=== PATIENT | female | born 1990 | race Caucasian/White ===

== ENCOUNTER 2019-04-08 19:51 | Emergency (ER) | payer SELFPAY ==
[~2019-04-08] VITALS: Ht 173 cm; Wt 64.5 kg
--- NOTE | 2019-04-08 20:56 | ED EENT ---
History of Present Illness General Chief Complaint: Dental Problems/Pain Stated Complaint: GUMS BLEEDING Nursing Triage Note: PT HAD A TOOTH TAKEN OUT TODAY AT [facility], CC OF DENTAL BLEEDING THAT WON'T STOP. UPPER LT SIDE. History of Present Illness Date Seen by Provider: Apr 08, 2019 Time Seen by Provider: 20:30 Initial Comments 28-year-old female presents for bleeding from her left upper gum after having a tooth extraction earlier today. Approximately one hour prior to arrival the patient had removed the packing that was placed and noted persistent bleeding. She applied a Tea bag and has been keeping that in place. She does not take aspirin or any anticoagulants, she's only been taking Tylenol for pain. No history of bleeding disorders. Timing/Duration: abrupt Location: mouth Prearrival Treatment: over the counter meds Associated Symptoms: denies symptoms Allergies and Home Medications Patient Home Medication List Home Medication List Reviewed: Yes Review of Systems Review of Systems Constitutional: no symptoms reported, see HPI Mouth: see HPI, bloody discharge All Other Systems Reviewed Negative Unless Noted: Yes Past Wbmzqsh-Gohefj-Fttzze Hx Past Med/Social Hx: Reviewed Nursing Past Med/Soc Hx Patient Social History Alcohol Use: Rarely Uses Alcohol Beverage of Choice: Wine Recreational Drug Use: No Smoking Status: Former Smoker Type Used: Cigarettes Former Smoker, Quit: Nov 19, 2018 Recent Foreign Travel: No Contact w/Someone Who Travel: No Recent Infectious Disease Expo: No Recent Hopitalizations: No Physical Abuse: No Sexual Abuse: No Mistreated: No Fear: No Seasonal Allergies Seasonal Allergies: Yes Past Medical History Surgeries: Yes (DENTAL, NOSE) Gallbladder Respiratory: No Cardiac: No Neurological: No : No Last Menstrual Period: Apr 08, 2019 Genitourinary: No Gastrointestinal: No Musculoskeletal: No Endocrine: No HEENT: No Cancer: No Psychosocial: Yes Anxiety, Depression Integumentary: No Physical Exam Vital Signs Vital Signs - First Documented 04/08/19 20:13 Temp 36.9 Pulse 71 Resp 18 B/P (MAP) 130/90 (103) Pulse Ox 100 O2 Delivery Room Air Height, Weight, BMI Height: '" Weight: lbs. oz. kg; 21.00 BMI Method: General Appearance: WD/WN, no apparent distress Nose: normal inspection; No active bleeding, No discharge Mouth/Throat: pharynx normal; No mandibular swelling; other (left upper #12 tooth extracted, tea bag removed, no active bleeding from wound site. Re- applied 4x4 and applied ice back to check. ) Cardiovascular: normal peripheral pulses, regular rate, rhythm Respiratory: chest non-tender, lungs clear, normal breath sounds Neurologic/Psychiatric: no motor/sensory deficits, alert, normal mood/affect, oriented x 3 Progress/Results/Core Measures Results/Orders Vital Signs/I&O 04/08/19 04/08/19 20:13 21:14 Temp 36.9 36.9 Pulse 71 70 Resp 18 18 B/P (MAP) 130/90 (103) 128/89 (103) Pulse Ox 100 100 O2 Delivery Room Air Blood Pressure Mean: 103 Progress Progress Note : Time: 20:30 Progress Note Patient seen and evaluated, will keep packing in place for approximately 15 minutes and reevaluate. 2049 Trace bleeding to gauze packing. No active bleeding to gingiva. New gauze placed, charge instructions and return precautions reviewed with the patient. All questions answered Departure Impression Primary Impression: S/P tooth extraction Disposition: HOME, SELF-CARE Condition: Improved Departure-Patient Inst. Decision time for Depature: 21:00 Referrals: NO,LOCAL PHYSICIAN (PCP/Family) Primary Care Physician Patient Instructions: Tooth Extraction (DC) Add. Discharge Instructions: Only take Tylenol 650 mg every 6-8 hours as needed for pain, avoid aspirin or ibuprofen products. Continue to use gauze or tea bags for bleeding. Remove for sleeping. Liquid or soft food to eat. Follow up at [facility] if symptoms are not improving or worsen tomorrow. Apply ice pack to left cheek for 20 minutes every 2 hours while awake. Return to the emergency department for new, urgent health care needs. All discharge instructions reviewed with patient and/or family. Voiced understa nding. DOROTHEA FARRAR Apr 08, 2019 20:56
[2019-04-08 21:14] VITALS: BP 128/89
== END 2019-04-08 21:14 | disposition home or self-care (01) ==
LOC: ER 19:53
DX: K08.409 Partial loss of teeth, unspecified cause, unspecified class (principal); F41.9 Anxiety disorder, unspecified; F32.9 Major depressive disorder, single episode, unspecified; Z87.891 Personal history of nicotine dependence
CPT/HCPCS: 99282

== ENCOUNTER → 2019-10-09 | Outpatient (CLI) | payer OTHER ==
[~2019-10-09] MED LIST: BUSP5TAB59 PO; DEXL60CA PO; ONDA4TAB11 PO
[2019-10-09 08:48] LABS: BASOPHILS % (AUTO) 1 % (0-10); EOSINOPHILS # (AUTO) 0.1 10^3/uL (0.0-0.3); EOSINOPHILS % (AUTO) 3 % (0-10); HEMATOCRIT 41 % (35-52); HEMOGLOBIN 13.2 G/DL (11.5-16.0); LYMPHOCYTES # (AUTO) 1.1 X 10^3 (1.0-4.0); LYMPHOCYTES % (AUTO) 28 % (12-44); MEAN CORPUSCULAR HEMOGLOBIN 30 PG (25-34); MEAN CORPUSCULAR HGB CONC 32 G/DL (32-36); MEAN CORPUSCULAR VOLUME 92 FL (80-99); MEAN PLATELET VOLUME 12.2 FL (7.4-10.4); MONOCYTES # (AUTO) 0.4 X 10^3 (0.0-1.0); MONOCYTES % (AUTO) 11 % (0-12); NEUTROPHILS # (AUTO) 2.2 X 10^3 (1.8-7.8); NEUTROPHILS % (AUTO) 58 % (42-75); PLATELET COUNT 179 10^3/uL (130-400); RED CELL DISTRIBUTION WIDTH 14.3 % (10.0-14.5); WHITE BLOOD COUNT 3.9 10^3/uL (4.3-11.0)
[2019-10-09 09:01] LABS: ALANINE AMINOTRANSFERASE 17 U/L (0-55); ALBUMIN 4.6 GM/DL (3.2-4.5); ALKALINE PHOSPHATASE 88 U/L (40-136); BILIRUBIN,TOTAL 0.6 MG/DL (0.1-1.0); BUN/CREATININE RATIO 10; CALCIUM 9.2 MG/DL (8.5-10.1); CARBON DIOXIDE 24 MMOL/L (21-32); CHLORIDE 106 MMOL/L (98-107); CHOLESTEROL 101 MG/DL (< 200); CREATININE SERUM 0.94 MG/DL (0.60-1.30); GFR ESTIMATED > 60; GLUCOSE 97 MG/DL (70-105); HDL CHOLESTEROL 41 MG/DL (40-60); SODIUM 139 MMOL/L (135-145); TOTAL PROTEIN 7.8 GM/DL (6.4-8.2); TRIGLYCERIDES 40 MG/DL (<150); VLDL CHOLESTEROL 8 MG/DL (5-40)
== END ==
LOC: LAB 08:16
PROVIDERS: ATTEND Nurse Practitioner Family
DX: R53.83 Other fatigue (principal); R10.9 Unspecified abdominal pain; R55 Syncope and collapse
CPT/HCPCS: 36415; 80053; 80061; 84439; 84443; 85025

== ENCOUNTER 2019-10-12 10:40 | Emergency (ER) | payer OTHER ==
[~2019-10-12] VITALS: Ht 175 cm; Wt 65.7 kg
[2019-10-12 10:50] VITALS: BP 123/74
[2019-10-12] MEDS ORDERED: LACTATED RINGERS 1,000 ML IV ONE ×2 (10:55→10:58)
[2019-10-12] MEDS ORDERED: ONDANSETRON 4 MG/2 ML (SDV) Z0FRAN ONE (10:55)
[2019-10-12] MEDS ORDERED: ONDANSETRON 4 MG/2 ML (SDV) Z0FRAN IVP ONE (11:00)
[2019-10-12] MEDS ORDERED: FAMOTIDINE 20MG/2ML IV (PEPCID) IVP ONE (11:00)
[2019-10-12 11:03] LABS: BASOPHILS % (AUTO) 1 % (0-10); EOSINOPHILS # (AUTO) 0.2 10^3/uL (0.0-0.3); EOSINOPHILS % (AUTO) 4 % (0-10); HEMATOCRIT 42 % (35-52); HEMOGLOBIN 13.3 G/DL (11.5-16.0); LYMPHOCYTES # (AUTO) 1.1 X 10^3 (1.0-4.0); LYMPHOCYTES % (AUTO) 18 % (12-44); MEAN CORPUSCULAR HEMOGLOBIN 29 PG (25-34); MEAN CORPUSCULAR HGB CONC 32 G/DL (32-36); MEAN CORPUSCULAR VOLUME 91 FL (80-99); MEAN PLATELET VOLUME 12.4 FL (7.4-10.4); MONOCYTES # (AUTO) 0.5 X 10^3 (0.0-1.0); MONOCYTES % (AUTO) 8 % (0-12); NEUTROPHILS # (AUTO) 4.1 X 10^3 (1.8-7.8); NEUTROPHILS % (AUTO) 69 % (42-75); PLATELET COUNT 187 10^3/uL (130-400); RED CELL DISTRIBUTION WIDTH 14.5 % (10.0-14.5)
[2019-10-12 11:04] LABS: BILIRUBIN,URINE NEGATIVE (NEGATIVE); CLARITY,URINE CLEAR; COLOR,URINE YELLOW; GLUCOSE, URINE (UA) NEGATIVE (NEGATIVE); KETONES,URINE NEGATIVE (NEGATIVE); LEUKOCYTE ESTERASE ,URINE NEGATIVE (NEGATIVE); NITRITE,URINE NEGATIVE (NEGATIVE); PH,URINE 7.5 (5-9); PROTEIN,URINE NEGATIVE (NEGATIVE)
[2019-10-12 11:14] LABS: BACTERIA,URINE FEW /HPF
[2019-10-12 11:16] LABS: ALBUMIN 4.6 GM/DL (3.2-4.5); CHLORIDE 107 MMOL/L (98-107); SODIUM 140 MMOL/L (135-145)
[2019-10-12 11:17] LABS: CALCIUM 9.5 MG/DL (8.5-10.1)
[2019-10-12 11:18] LABS: GLUCOSE 99 MG/DL (70-105); TOTAL PROTEIN 8.3 GM/DL (6.4-8.2)
[2019-10-12 11:19] LABS: CARBON DIOXIDE 22 MMOL/L (21-32)
--- NOTE | 2019-10-12 11:19 | ED GI ---
General Chief Complaint: Abdominal/GI Problems Stated Complaint: COUGH Nursing Triage Note: pt presents to ed with complaints lower abdominal pain, vomiting, malaise, and fever. pt reports she has had issues with abdominal pain and vomiting for over a month but the generalized weakness, and fever started yesterday. Sepsis Screen: No Definite Risk Source of Information: Patient Exam Limitations: No Limitations History of Present Illness Date Seen by Provider: Oct 12, 2019 Time Seen by Provider: 10:45 Initial Comments This 29-year-old young lady presents to the emergency room with complaints of abdominal pain, feeling fatigued, vomiting, temperature of 100.3 at home, chest pain, and confusion. Her chest pain is reproducible with palpation and has been present for 1-2 months. She has been seen in the primary care setting for this. She has also had some GI discomfort intermittently for quite some time and has begun a workup in the outpatient setting for that as well. However, today she developed more intense pain and started vomiting. She reports her mother has IBD. Her grandmother has irritable bowel syndrome. She is afebrile at present but is vomiting. She started new medications yesterday including Dexilant and Buspirone. She wonders if these may be contributing to her symptoms. She denies constipation. Her stools are generally soft. Allergies and Home Medications Allergies Coded Allergies: codeine (Verified Adverse Reaction, Unknown, Vomiting, 10/12/19) Home Medications Ondansetron 4 Mg Tab.rapdis, 8 MG PO Q4H PRN for NAUSEA/VOMITING Prescribed by: KLAUS WADE on 10/12/19 1219 Patient Home Medication List Home Medication List Reviewed: Yes Review of Systems Review of Systems Constitutional: see HPI EENTM: No Symptoms Reported Respiratory: No Symptoms Reported Cardiovascular: No Symptoms Reported Gastrointestinal: See HPI Genitourinary: No Symptoms Reported Musculoskeletal: no symptoms reported Skin: no symptoms reported Psychiatric/Neurological: See HPI Endocrine: No Symptoms Reported Hematologic/Lymphatic: No Symptoms Reported Past Wrkkspw-Hsvyqs-Gqktdj Hx Past Med/Social Hx: Reviewed Nursing Past Med/Soc Hx Patient Social History Alcohol Use: Rarely Uses Number of Drinks Today: Alcohol Beverage of Choice: Wine Recreational Drug Use: No Smoking Status: Former Smoker Type Used: Cigarettes Former Smoker, Quit: Nov 19, 2018 Recent Foreign Travel: No Contact w/Someone Who Travel: No Recent Infectious Disease Expo: No Recent Hopitalizations: No Physical Abuse: No Sexual Abuse: No Mistreated: No Fear: No Seasonal Allergies Seasonal Allergies: Yes Past Medical History Surgeries: Yes (DENTAL, NOSE) Gallbladder Respiratory: No Cardiac: No Neurological: No : No Last Menstrual Period: Oct 12, 2019 Genitourinary: No Gastrointestinal: Yes Chronic Diarrhea, Irritable Bowel Musculoskeletal: No Endocrine: No HEENT: No Cancer: No Psychosocial: Yes Anxiety, Depression Integumentary: No Physical Exam Vital Signs Vital Signs - First Documented 10/12/19 10:50 Temp 36.8 Pulse 55 Resp 16 B/P (MAP) 123/74 (90) Pulse Ox 98 Capillary Refill : Less Than 3 Seconds Height/Weight/BMI Height: '" Weight: lbs. oz. 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, no motor/sensory deficits, alert, normal mood/affect, oriented x 3 Skin: normal color, warm/dry Progress/Results/Core Measures Results/Orders Lab Results Laboratory Tests Test 10/12/19 10:47 Range/Units White Blood Count 6.0 4.3-11.0 10^3/uL Red Blood Count 4.55 4.35-5.85 10^6/uL Hemoglobin 13.3 11.5-16.0 G/DL Hematocrit 42 35-52 % Mean Corpuscular Volume 91 80-99 FL Mean Corpuscular Hemoglobin 29 25-34 PG Mean Corpuscular Hemoglobin Concent 32 32-36 G/DL Red Cell Distribution Width 14.5 10.0-14.5 % Platelet Count 187 130-400 10^3/uL Mean Platelet Volume 12.4 H 7.4-10.4 FL Neutrophils (%) (Auto) 69 42-75 % Lymphocytes (%) (Auto) 18 12-44 % Monocytes (%) (Auto) 8 0-12 % Eosinophils (%) (Auto) 4 0-10 % Basophils (%) (Auto) 1 0-10 % Neutrophils # (Auto) 4.1 1.8-7.8 X 10^3 Lymphocytes # (Auto) 1.1 1.0-4.0 X 10^3 Monocytes # (Auto) 0.5 0.0-1.0 X 10^3 Eosinophils # (Auto) 0.2 0.0-0.3 10^3/uL Basophils # (Auto) 0.0 0.0-0.1 10^3/uL Erythrocyte Sedimentation Rate 1 0-20 MM/HR Urine Color YELLOW Urine Clarity CLEAR Urine pH 7.5 5-9 Urine Specific [place] 1.020 1.016-1.022 Urine Protein NEGATIVE NEGATIVE Urine Glucose (UA) NEGATIVE NEGATIVE Urine Ketones NEGATIVE NEGATIVE Urine Nitrite NEGATIVE NEGATIVE Urine Bilirubin NEGATIVE NEGATIVE Urine Urobilinogen 0.2 < = 1.0 MG/DL Urine Leukocyte Esterase NEGATIVE NEGATIVE Urine RBC (Auto) 1+ H NEGATIVE Urine RBC 5-10 H /HPF Urine WBC NONE /HPF Urine Squamous Epithelial Cells 5-10 /HPF Urine Crystals NONE /LPF Urine Bacteria FEW H /HPF Urine Casts NONE /LPF Urine Mucus NEGATIVE /LPF Urine Culture Indicated NO Sodium Level 140 135-145 MMOL/L Potassium Level 4.0 3.6-5.0 MMOL/L Chloride Level 107 98-107 MMOL/L Carbon Dioxide Level 22 21-32 MMOL/L Anion Gap 11 5-14 MMOL/L Blood Urea Nitrogen 8 7-18 MG/DL Creatinine 0.98 0.60-1.30 MG/DL Estimat Glomerular Filtration Rate > 60 BUN/Creatinine Ratio 8 Glucose Level 99 70-105 MG/DL Calcium Level 9.5 8.5-10.1 MG/DL Corrected Calcium 8.5-10.1 MG/DL Magnesium Level 2.2 1.6-2.4 MG/DL Total Bilirubin 0.7 0.1-1.0 MG/DL Aspartate Amino Transf (AST/SGOT) 24 5-34 U/L Alanine Aminotransferase (ALT/SGPT) 16 0-55 U/L Alkaline Phosphatase 81 40-136 U/L C-Reactive Protein High Sensitivity 0.04 0.00-0.50 MG/DL Total Protein 8.3 H 6.4-8.2 GM/DL Albumin 4.6 H 3.2-4.5 GM/DL Lipase 32 8-78 U/L Serum Test, Qualitative NEGATIVE NEGATIVE My Orders Orders - KLAUS BLACKWOOD MD Cbc With Automated Diff (10/12/19 10:50) Comprehensive Metabolic Panel (10/12/19 10:50) Hcg,Qualitative Serum (10/12/19 10:50) Lipase (10/12/19 10:50) Magnesium (10/12/19 10:50) Ua Culture If Indicated (10/12/19 10:50) Ed Iv/Invasive Line Start (10/12/19 10:50) Hs C Reactive Protein (10/12/19 10:50) Erythrocyte Sedimentation Rate (10/12/19 10:50) Ondansetron Injection (Zofran Injectio (10/12/19 10:55) Lactated Ringers (Lr 1000 Ml Iv Solution (10/12/19 10:55) Famotidine Injection (Pepcid Injection) (10/12/19 11:00) Ondansetron Injection (Zofran Injectio (10/12/19 11:00) Lactated Ringers (Lr 1000 Ml Iv Solution (10/12/19 10:58) Acute Abd Series (10/12/19 11:02) Promethazine Injection (Phenergan Injec (10/12/19 12:15) Hyoscyamine Sl Tablet (Levsin Sl Tablet) (10/12/19 12:15) Medications Given in ED Current Medications Medications Dose Ordered Sig/Alicia Route Start Time Stop Time Status Last Admin Dose Admin Famotidine 20 mg ONCE ONCE IVP 10/12/19 11:00 10/12/19 11:02 DC 10/12/19 11:11 20 MG Lactated Ringer's 1,000 ml @ 0 mls/hr Q0M ONCE IV 10/12/19 10:58 10/12/19 11:00 DC 10/12/19 11:00 0 MLS/HR Ondansetron HCl 8 mg ONCE ONCE IVP 10/12/19 11:00 10/12/19 11:02 DC 10/12/19 11:00 8 MG Vital Signs/I&O 10/12/19 10:50 Temp 36.8 Pulse 55 Resp 16 B/P (MAP) 123/74 (90) Pulse Ox 98 Blood Pressure Mean: 90 Progress Progress Note : Progress Note Workup was unremarkable. Patient's nausea was treated with Zofran. She had refractory nausea and persistent abdominal cramping/pain. She was further treated with Levsin and Phenergan. She received a liter of LR. I suspect her symptoms are due to either to adverse reaction buspirone or viral gastroenteritis. Diagnostic Imaging Diagonstic Imaging: Xray Plain Films/CT/US/NM/MRI: chest, abdomen, pelvis Comments X-rays viewed by me and report reviewed. See report below: NAME: VIK BOND [facility] REC#: [id number] PT STATUS: REG ER : 1990 PHYSICIAN: KLAUS BLACKWOOD MD ADMIT DATE: 10/12/19/ER Draft Date of Exam:10/12/19 ACUTE ABD SERIES INDICATION: Fever and vomiting earlier today. Cough. Abdominal pain. TECHNIQUE: Single view chest with supine and upright radiographs of the abdomen. CORRELATION STUDY: None. FINDINGS: Frontal radiograph of the chest demonstrates no acute abnormality. Air/fluid level within stomach, mildly distended with gas. Gas and stool to the level of the rectum. No findings to suggest underlying obstruction. Small calcification in the right mid abdomen could reflect a potential renal stone projecting over the renal silhouette. Cholecystectomy clips project over the right aspect of L1. IMPRESSION: 1. Negative for acute cardiopulmonary abnormality. 2. A few gas-filled loops of small bowel are present and may reflect a mild ileus pattern. No findings to suggest high degree bowel obstruction. Dictated on workstation # [id number] Dict: 10/12/19 1207 Trans: 10/12/19 1210 [id number] Interpreted by: BEVERLY YUAN DO Departure Impression Primary Impression: Nausea and vomiting Qualified Codes: R11.2 - Nausea with vomiting, unspecified Additional Impressions: Intestinal cramps Left upper quadrant pain Chest wall pain Disposition: 01 HOME, SELF-CARE Condition: Improved Departure-Patient Inst. Decision time for Depature: 12:16 Referrals: MUKUL ANDINO MD (PCP/Family) Primary Care Physician Patient Instructions: Acute Abdomen (Belly Pain), Adult (DC), Viral Gastroenteritis Add. Discharge Instructions: Your symptoms may be related to viral gastroenteritis or adverse reaction to buspirone. Stop buspirone until symptoms have completely resolved. Then you may trial at again. You may continue Levsin (hyoscyamine) as directed for bowel cramping and pain. Use Zofran (ondansetron) as prescribed for nausea and vomiting. Start with a noncarbonated clear liquid diet and gradually advance your diet as tolerated. Take Tylenol (acetaminophen) up to 1000 mg every 6 hours as needed for pain. Avoid use of NSAID medications such as ibuprofen or naproxen as that may worsen stomach pain. Return to care if you have worsening symptoms. Otherwise, follow-up with your primary care provider to continue workup for your bowel issues. All discharge instructions reviewed with patient and/or family. Voiced understanding. Scripts Ondansetron (Ondansetron Odt) 4 Mg Tab.rapdis 8 MG PO Q4H PRN for NAUSEA/VOMITING, #10 TAB Prov: KLAUS BLACKWOOD MD 10/12/19 Work/School Note: Work Release Form Date Seen in the Emergency Department: Oct 12, 2019 Return to Work: Oct 14, 2019 Restrictions: Return-No Fever (24hrs), Return-No Vomiting(24hrs) Copy Copies To 1: MUKUL ANDINO MD, JOSHUA T MD Oct 12, 2019 11:19
[2019-10-12 11:20] LABS: BILIRUBIN,TOTAL 0.7 MG/DL (0.1-1.0)
[2019-10-12 11:22] LABS: ALKALINE PHOSPHATASE 81 U/L (40-136); CREATININE SERUM 0.98 MG/DL (0.60-1.30); GFR ESTIMATED > 60
[2019-10-12 11:23] LABS: BUN/CREATININE RATIO 8
[2019-10-12] MEDS ORDERED: DEXL60CA PO (11:24)
[2019-10-12] MEDS ORDERED: BUSP5TAB59 PO (11:24)
[2019-10-12 11:25] LABS: ALANINE AMINOTRANSFERASE 16 U/L (0-55); MAGNESIUM 2.2 MG/DL (1.6-2.4)
[2019-10-12 11:26] LABS: LIPASE 32 U/L (8-78)
[2019-10-12 11:31] LABS: ERYTHROCYTE SEDIMENTATION RATE 1 MM/HR (0-20)
--- OUTSIDE RECORDS SUMMARY | 2019-10-12 11:32 | XMS REPORT | Continuity of Care Document ---
Author Organization Unknown Address Unknown Phone Unavailable Allergies There is no data. Medications There is no data. Problems Date Dx Coded Attending Type Code Diagnosis Diagnosed By 04/12/2019 DOROTHEA FARRAR Ot F32.9 MAJOR DEPRESSIVE DISORDER, SINGLE EPISOD 04/12/2019 DOROTHEA FARRAR Ot F41.9 ANXIETY DISORDER, UNSPECIFIED 04/12/2019 DOROTHEA FARRAR Ot K08.409 PARTIAL LOSS OF TEETH, UNSPECIFIED CAUSE 04/12/2019 DOROTHEA FARRAR Ot Z87.891 PERSONAL HISTORY OF NICOTINE DEPENDENCE 10/11/2019 W F41.1 Gene ralized anxiety disorder John Benites 10/11/2019 W K21.9 Lorenza ro-esophageal reflux disease without esophagitis John Benites 10/11/2019 W R10.31 RLQ abdominal pain John Benites 10/11/2019 W R10.32 LLQ abdominal pain John Benites 10/11/2019 W R19.7 Diarrhea John Benites 10/11/2019 W K21.9 Lorenza ro-esophageal reflux disease without esophagitis John Benites Procedures There is no data. Results Test Result Range Complete blood count (CBC) with automate d white blood cell (WBC) differential - 10/09/19 08:27 Blood leukocytes automated count (number/volume) 3.9 10*3/uL 4.3-11.0 Blood erythrocytes automated count (number/volume) 4.46 10*6/uL 4.35-5.85 Venous blood hemoglobin measurement (mass/volume) 13.2 g/dL 11.5-16.0 Blood hematocrit (volume fraction) 41 % 35-52 Automated erythrocyte mean corpuscular volume 92 [ foz_us] 80-99 Automated erythrocyte mean corpuscular h emoglobin (mass per erythrocyte) 30 pg 25-34 Automated erythrocyte mean corpuscular h emoglobin concentration measurement (mass/volume) 32 g/dL 32-36 Automated erythrocyte distribution width ratio 14. 3 % 10.0- 14.5 Automated blood platelet count (count/volume) 179 10*3/uL 130-400 Automated blood platelet mean volume measurement 12.2 [foz_us] 7.4-10.4 Automated blood neutrophils/100 leukocytes 58 % 42-75 Automated blood lymphocytes/100 leukocytes 28 % 12-44 Blood monocytes/100 leukocytes 11 % 0-12 Automated blood eosinophils/100 leukocytes 3 % 0-10 Automated blood basophils/100 leukocytes 1 % 0-10 Blood neutrophils automated count (number/volume) 2.2 10*3 1.8-7.8 Blood lymphocytes automated count (number/volume) 1.1 10*3 1.0-4.0 Blood monocytes automated count (number/volume) 0. 4 10*3 0.0-1.0 Automated eosinophil count 0.1 10*3/uL 0 .0-0.3 Automated blood basophil count (count/volume) 0.0 10*3/uL 0.0-0.1 Comprehensive metabolic panel - 10/09/19 08:27 Serum or plasma sodium measurement (moles/volume) 139 mmol/L 135-145 Serum or plasma potassium measurement (moles/volume) 4.0 mmol/L 3.6-5.0 Serum or plasma chloride measurement (moles/volume) 106 mmol/L 98-107 Carbon dioxide 24 mmol/L 21-32 Serum or plasma anion gap determination (moles/volume) 9 mmol/L 5-14 Serum or plasma urea nitrogen measurement (mass/volume ) 9 mg/dL 7-18 Serum or plasma creatinine measurement (mass/volume) 0.94 mg/dL 0.60-1.30 Serum or plasma urea nitrogen/creatinine mass ratio 10 NRG Serum or plasma creatinine measurement w ith calculation of estimated glomerular filtration rate > NRG Serum or plasma glucose measurement (mass/volume) 97 mg/dL 70-105 Serum or plasma calcium measurement (mass/volume) 9.2 mg/dL 8.5-10.1 Serum or plasma total bilirubin measurement (mass/volu me) 0.6 mg/dL 0.1-1.0 Serum or plasma alkaline phosphatase flo surement (enzymatic activity/volume) 88 U/L 40-136 Serum or plasma aspartate aminotransfera se measurement (enzymatic activity/volume) 16 U/L 5-34 Serum or plasma alanine aminotransferase measurement (enzymatic activity/volume) 17 U/L 0-55 Serum or plasma protein measurement (mass/volume) 7.8 g/dL 6.4-8.2 Serum or plasma albumin measurement (mass/volume) 4.6 g/dL 3.2-4.5 Lipid 1996 panel - 10/09/19 08:27 Serum or plasma triglyceride measurement (mass/volume) 40 mg/dL <150 Serum or plasma cholesterol measurement (mass/volume) 101 mg/dL < 200 Serum or plasma cholesterol in HDL measurement (mass/v olume) 41 mg/dL 40-60 Cholesterol in LDL [mass/volume] in serum or plasma by direct assay 57 mg/dL 1-129 Serum or plasma cholesterol in VLDL measurement (mass/ volume) 8 mg/dL 5-40 THYROID STIMULATING HORMONE - 10/09/19 0 8:27 THYROID STIMULATING HORMONE 0.68 u[iU]/mL 0.35-4.94 Serum or plasma thyroxine (T4) free lalit urement (mass/volume) - 10/09/19 08:27 Serum or plasma thyroxine (T4) free measurement (mass/ volume) 0.90 ng/dL 0.70-1.48 Encounters ACCT No. Visit Date/Time Discharge Status Pt. Type Provider Facility Loc./Unit Complaint [id number] 09/27/2019 10:27:24 09/27/2019 23:59:5 9 CLS Outpatient [id number] 04/08/2019 19:53:00 019 21:14:00 DIS Outpatient DOROTHEA FARRAR a [facility] ER GUMS BLEEDING [id number] 10/09/2019 08:16:[address] Outpatient JOHN BENITES APRN [facility] LAB FATIGUE,ABD PAIN,NEAR SYNCOP E
--- NOTE | 2019-10-12 12:10 | Diagnostic Imaging Report ---
INDICATION: Fever and vomiting earlier today. Cough. Abdominal pain. TECHNIQUE: Single view chest with supine and upright radiographs of the abdomen. CORRELATION STUDY: None. FINDINGS: Frontal radiograph of the chest demonstrates no acute abnormality. Air/fluid level within stomach, mildly distended with gas. Gas and stool to the level of the rectum. No findings to suggest underlying obstruction. Small calcification in the right mid abdomen could reflect a potential renal stone projecting over the renal silhouette. Cholecystectomy clips project over the right aspect of L1. IMPRESSION: 1. Negative for acute cardiopulmonary abnormality. 2. A few gas-filled loops of small bowel are present and may reflect a mild ileus pattern. No findings to suggest high degree bowel obstruction. Dictated by: Dictated on workstation # [id number]
[2019-10-12] MEDS ORDERED: HYOSCYAMINE 0.125 MG (LEVSIN) TAB SL ONE (12:15)
[2019-10-12] MEDS ORDERED: PROMETHAZINE INJ 25 MG/ML (PHENERGAN) AMP IVP ONE (12:15)
[2019-10-12] MEDS ORDERED: ONDA4TAB11 PO (12:19)
== END 2019-10-12 12:30 | disposition home or self-care (01) ==
LOC: EDUNIT# 10:40 → ER 10:43
DX: R11.2 Nausea with vomiting, unspecified (principal); R10.12 Left upper quadrant pain; R07.89 Other chest pain; K58.0 Irritable bowel syndrome with diarrhea; F41.9 Anxiety disorder, unspecified; F32.9 Major depressive disorder, single episode, unspecified; R41.0 Disorientation, unspecified; R53.83 Other fatigue; Z88.5 Allergy status to narcotic agent; Z87.891 Personal history of nicotine dependence
CPT/HCPCS: 36415; 74022; 80053; 81000; 83690; 83735; 84703; 85025; 85652; 86141; 96361; 96374; 96375

== ENCOUNTER 2020-01-20 05:30 | Outpatient (RCR) | payer OTHER ==
[~2020-01-20] VITALS: Ht 175 cm; Wt 65.9 kg
[~2020-01-20 05:30] MED LIST changes: +NORG1TAB14 PO
== END 2020-01-20 10:07 | disposition home or self-care (01) ==
LOC: PREOP 05:30
PROVIDERS: ATTEND Surgery
DX: Z01.818 Encounter for other preprocedural examination (principal); Z01.812 Encounter for preprocedural laboratory examination; K29.70 Gastritis, unspecified, without bleeding; R19.4 Change in bowel habit; Z20.828 Contact with and (suspected) exposure to other viral communicable diseases
CPT/HCPCS: 87635

== ENCOUNTER 2020-03-18 12:30 | Emergency (ER) | payer OTHER ==
[~2020-03-18] VITALS: Ht 175.3 cm; Wt 59.5 kg
--- NOTE | 2020-03-18 13:52 | NUR ---
TO ROOM NO NEW C/O SITTING ON BED WITH I PAD USING IT.
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
[2020-03-18] MEDS ORDERED: FLUO20CA42 PO (14:02)
--- NOTE | 2020-03-18 14:04 | NUR ---
BEDSIDE PREG TEST NEG
[2020-03-18 14:09] VITALS: BP 143/97
== END 2020-03-18 14:10 | disposition home or self-care (01) ==
LOC: EDUNIT# 12:30 → ER 12:31
DX: F32.9 Major depressive disorder, single episode, unspecified (principal); Z87.891 Personal history of nicotine dependence; Z88.5 Allergy status to narcotic agent
CPT/HCPCS: 99283

== ENCOUNTER 2020-07-29 13:33 | Emergency (ER) | payer OTHER ==
[~2020-07-29] VITALS: Ht 175 cm; Wt 59.0 kg
[~2020-07-29 13:33] MED LIST changes: +FLUO20CA42 PO
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
[2020-07-29] MEDS ORDERED: METH-313 PO (14:59)
--- NOTE | 2020-07-29 15:02 | Diagnostic Imaging Report ---
PROCEDURE: CT lumbar spine without contrast. TECHNIQUE: Multiple contiguous axial images were obtained through the lumbar spine without the use of intravenous contrast. Sagittal and coronal reformations were then performed. Auto Exposure Controls were utilized during the CT exam to meet ALARA standards for radiation dose reduction. INDICATION: Fall on buttocks. Low back pain. COMPARISON: None. FINDINGS: Normal alignment. Vertebral body heights are preserved. No fracture. Mild degenerative endplate changes at L5-S1. Visualized pelvis is intact. Sclerosis along the sacroiliac joints. IMPRESSION: 1. No acute CT finding in the lumbar spine. 2. Sclerosis along the sacroiliac joints can be seen in autoimmune disorders including inflammatory bowel disease. Recommend correlation with history. Dictated by: Dictated on workstation # [id number]
[2020-07-29 15:04] VITALS: BP 129/83
== END 2020-07-29 15:04 | disposition home or self-care (01) ==
LOC: EDUNIT# 13:33 → ER 13:35
DX: S30.0XXA Contusion of lower back and pelvis, initial encounter (principal); F32.9 Major depressive disorder, single episode, unspecified; Z88.5 Allergy status to narcotic agent; Z87.891 Personal history of nicotine dependence; W51.XXXA Accidental striking against or bumped into by another person, initial encounter
CPT/HCPCS: 72131